=== PATIENT | female | born 1995 | race Caucasian/White ===

== ENCOUNTER 2024-09-29 10:43 | Emergency (ER) | payer OTHER ==
[~2024-09-29] VITALS: Ht 170.2 cm; Wt 59.0 kg
[2024-09-29 11:28] VITALS: BP 107/75; O2SAT 100
[2024-09-29] MEDS ORDERED: DEXAMETHASONE SODIUM PHOSPHATE 4 MG/ML VIAL IM STA (12:10)
[2024-09-29] MEDS ORDERED: KETOROLAC TROMETHAMINE 60 MG VIAL IM STA (12:10)
[2024-09-29 12:44] LABS: HEMATOCRIT 42.8 % (36.0-45.00); HEMOGLOBIN 14.6 g/dL (12.0-15.00); MEAN CELL VOLUME 91.3 fL (80.00-100.00); MEAN CORPUSCULAR HEMOGLOBIN 31.1 pg (27.00-32.0); MEAN CORPUSCULAR HGB CONC 34.1 g/dl (32.0-36.0); PLATELET COUNT 180 K/uL (150-450); RED BLOOD COUNT 4.68 M/uL (4.00-6.00); RED CELL DISTRIBUTION WIDTH 12.6 % (11.5-14.5)
[2024-09-29 13:03] LABS: CREATININE SERUM 0.74 mg/dL (0.55-1.02); GFR 93.45; POTASSIUM 3.81 mEq/L (3.5-5.1)
[2024-09-29 14:06] LABS: URINE APPEARANCE Clear; URINE BILIRRUBIN Negative (NEGATIVE); URINE BLOOD Negative; URINE COLOR Yellow; URINE GLUCOSE Negative (NEGATIVE); URINE LEUKOCYTE Negative; URINE NITRATE Negative; URINE PROTEIN Negative (NEGATIVE); URINE UROBILINOGEN 0.2 E.U./dl
[2024-09-29 14:10] LABS: URINE BACTERIA 314.4 uL (0.0-1933); URINE EPITHELIAL CELLS 13.9 uL (0.0-38.8); URINE RBC 5.1 uL (0.0-20.8); URINE WBC 5.6 uL (0.0-23.2)
[2024-09-29 14:13] LABS: URINE KETONE 80 (NEGATIVE)
== END 2024-09-29 17:15 | disposition home or self-care (01) ==
LOC: ER 10:45
PROVIDERS: General Practice
DX: R51.9 Headache, unspecified (principal)